=== PATIENT | female | born 2005 | race African-American/Black ===

== ENCOUNTER 2025-06-21 19:48 | Emergency (ER) | payer MEDICAID ==
[~2025-06-21] VITALS: Ht 162.6 cm; Wt 74.7 kg
[2025-06-21 20:22] VITALS: TEMP 36.9; O2SAT 99
[2025-06-21] MEDS ORDERED: CIPHCO RIGHT EAR (21:18)
[2025-06-21] MEDS: MECLIZINE 25MG TABLET PO ONE (21:24)
[2025-06-21 21:27] VITALS: BP 115/69; PULSE 87; RESP 16; O2SAT 100
== END 2025-06-21 21:29 | disposition home or self-care (01) ==
LOC: ER 19:48
DX: H72.91 Unspecified perforation of tympanic membrane, right ear (principal); J45.909 Unspecified asthma, uncomplicated
CPT/HCPCS: 99283; J8597